=== PATIENT | female | born 1975 | race Caucasian/White ===

== ENCOUNTER 2021-11-23 17:25 | Outpatient (CLI) | payer OTHER, SELFPAY ==
[2021-11-23 21:27] LABS: Albumin* 4.6 g/dL (3.3-5.0); Chloride* 102 mmol/L (96-114); Sodium* 136 mmol/L (135-149)
[2021-11-23 21:28] LABS: Potassium* 4.4 mmol/L (3.6-5.1)
[2021-11-23 21:29] LABS: Cholesterol* 203 mg/dL (90-199)
[2021-11-23 21:30] LABS: Alkaline Phosphatase* 71 U/L (40-150); Aspartate Amino Transferase* 28 U/L (12-35); Bilirubin Direct* 0.4 mg/dL (0.0-0.5); Bilirubin Total* 0.8 mg/dL (0.1-1.5); Blood Urea Nitrogen* 15 mg/dL (5-24); Calcium* 9.6 mg/dL (8.4-10.6); Carbon Dioxide* 24 mmol/L (20-32); Creatinine* 0.8 mg/dL (0.5-1.5); Estimated Glomerular Filt Rate 90.83; Glucose* 84 mg/dL (60-115); Total Protein* 7.2 g/dL (6.0-8.3); Triglycerides* 102 mg/dL (40-149)
[2021-11-23 21:31] LABS: Alanine Aminotransferase* 37 U/L (4-35); HDL Cholesterol* 80 mg/dL (>=50); LDL Cholesterol Calculated 103 mg/dL (<100)
== END 2021-11-23 17:26 | disposition home or self-care (01) ==
PROVIDERS: PCP Emergency Medicine; Visit Provider Emergency Medicine
DX: E66.9 Obesity, unspecified (principal); R68.89 Other general symptoms and signs; L50.2 Urticaria due to cold and heat; K62.5 Hemorrhage of anus and rectum
CPT/HCPCS: 80048; 80061; 80076; 84443

== ENCOUNTER 2022-01-17 14:47 | Outpatient (CLI) | payer OTHER, SELFPAY ==
--- NOTE | 2022-01-17 15:00 | CRLHL7_ITS ---
For Patients: As a result of the Century Cures Act, medical imaging exams and procedure reports are released immediately into your electronic medical record. You may view this report before your referring provider. If you have questions, please contact your health care provider. BILATERAL SCREENING MAMMOGRAM WITH COMPUTER-AIDED DETECTION AND TOMOSYNTHESIS TECHNIQUE: CC and MLO views were obtained. These mammographic images have been obtained using full-field digital technique. These mammographic images were interpreted with the benefit of computer-aided detection. Breast Tomosynthesis was used in this interpretation. COMPARISON FILM: 06/16/20, 06/04/19, 05/18/17. FINDINGS: The breasts are heterogeneously dense, which may obscure small masses IMPRESSION: There is no radiographic evidence for malignancy. ASSESSMENT: BI-RADS Category 1: Negative RECOMMENDATION: Routine screening mammogram in 1 year. A lay language report of this examination will be provided to the patient. Jerardo Quintana M.D. Diagnostic/Musculoskeletal Radiologist [email or web address] [place]/Dictated by: Jerardo Quintana MD @ 01/18/2022 8:02:00 AM (Electronically Signed)
== END 2022-01-17 14:48 | disposition home or self-care (01) ==
LOC: MAMMO 14:48
PROVIDERS: PCP Emergency Medicine; Visit Provider Emergency Medicine
DX: Z12.31 Encounter for screening mammogram for malignant neoplasm of breast (principal); R92.2 Inconclusive mammogram
CPT/HCPCS: 77063; 77067

== ENCOUNTER 2023-02-14 16:48 | Outpatient (CLI) | payer OTHER, SELFPAY | END 2023-02-14 16:49 | disposition home or self-care (01) | LOC: NFLDREF 02-15 06:55 | PROVIDERS: PCP Emergency Medicine; Referring Provider Emergency Medicine; Visit Provider Nurse Practitioner Family | DX: N30.00 Acute cystitis without hematuria (principal); B96.20 Unspecified Escherichia coli [E. coli] as the cause of diseases classified elsewhere; R30.0 Dysuria | CPT/HCPCS: 87086; 87186 ==

== ENCOUNTER 2023-03-21 15:10 | Outpatient (CLI) | payer OTHER, SELFPAY ==
--- NOTE | 2023-03-21 15:20 | CRLHL7_ITS ---
For Patients: As a result of the Century Cures Act, medical imaging exams and procedure reports are released immediately into your electronic medical record. You may view this report before your referring provider. If you have questions, please contact your health care provider. BILATERAL SCREENING MAMMOGRAM WITH COMPUTER-AIDED DETECTION AND TOMOSYNTHESIS TECHNIQUE: CC and MLO views were obtained. These mammographic images have been obtained using full-field digital technique. These mammographic images were interpreted with the benefit of computer-aided detection. Breast Tomosynthesis was used in this interpretation. COMPARISON FILM: 01/17/22, 06/16/20, 06/04/19. FINDINGS: There are scattered areas of fibroglandular density IMPRESSION: There is no radiographic evidence for malignancy. ASSESSMENT: BI-RADS Category 1: Negative RECOMMENDATION: Routine screening mammogram in 1 year. A lay language report of this examination will be provided to the patient. Baudilio Fang M.D. Diagnostic Radiologist [email or web address] [place]/Dictated by: Baudilio Fang MD @ 03/23/2023 12:40:00 PM (Electronically Signed)
== END 2023-03-21 15:11 | disposition home or self-care (01) ==
LOC: MAMMO 15:11
PROVIDERS: PCP Emergency Medicine; Visit Provider Emergency Medicine
DX: Z12.31 Encounter for screening mammogram for malignant neoplasm of breast (principal)
CPT/HCPCS: 77063; 77067

== ENCOUNTER 2023-06-14 09:01 | Outpatient (CLI) | payer OTHER, SELFPAY | END 2023-06-14 09:02 | disposition home or self-care (01) | PROVIDERS: PCP Emergency Medicine; Visit Provider Obstetrics & Gynecology | DX: Z01.419 Encounter for gynecological examination (general) (routine) without abnormal findings (principal); Z13.6 Encounter for screening for cardiovascular disorders; Z13.1 Encounter for screening for diabetes mellitus; Z13.220 Encounter for screening for lipoid disorders | CPT/HCPCS: 80061; 82947 ==

== ENCOUNTER 2023-07-20 10:03 | Outpatient (CLI) | payer OTHER, SELFPAY | END 2023-07-20 10:04 | disposition home or self-care (01) | LOC: NFLDREF 08-04 09:37 | PROVIDERS: PCP Emergency Medicine; Referring Provider Emergency Medicine; Visit Provider Emergency Medicine | DX: Z15.89 Genetic susceptibility to other disease (principal); Z83.2 Family history of diseases of the blood and blood-forming organs and certain disorders involving the immune mechanism; Z84.81 Family history of carrier of genetic disease | CPT/HCPCS: 81240 ==

== ENCOUNTER 2023-08-18 08:05 | Outpatient (CLI) | payer OTHER, SELFPAY ==
--- NOTE | 2023-08-18 08:15 | US_ITS ---
Patient: IRIS BAUMAN Facility:?[facility] Patient ID:?[id number] Site Patient ID:?[id number]. Site :?[id number] Study:?US-Pelvis PELVIS TA & TV-08/18/2023 8:46:21 AM Ordering Physician:?LOTUS DOMINGUEZ M.D. Final Report: INDICATION: Postmenopausal bleeding. TECHNIQUE: Transabdominal and transvaginal scanning was performed. Transvaginal scanning was performed to optimally evaluate the endometrium and adnexa. Ovarian blood flow was evaluated with color-flow and pulsed Doppler. COMPARISON: Pelvic ultrasound of 07/17/2020 FINDINGS: The postmenopausal uterus is normal in size and shape. The uterus measures 8.5 x 4.5 x 5.4 cm. No myometrial mass is evident. The endometrial stripe is normal in thickness at 5 mm. The ovaries are normal in size. The right ovary measures 1.9 x 1.1 x 0.9 cm and left 2.2 x 1.4 x 1.0 cm. Ovarian blood flow is demonstrated with color-flow and pulsed Doppler. No adnexal mass is evident. No free fluid is demonstrated. IMPRESSION: Negative postmenopausal pelvic ultrasound. Dictated by Trey Birch MD @ 08/19/2023 7:13:46 AM Signed by:?Trey Birch MD @08/19/2023 7:13:46 AM (Electronic Signature)
== END 2023-08-18 08:06 | disposition home or self-care (01) ==
LOC: US 08:05
PROVIDERS: PCP Emergency Medicine; Visit Provider Obstetrics & Gynecology
DX: N95.0 Postmenopausal bleeding (principal)
CPT/HCPCS: 76830; 76856

== ENCOUNTER 2023-11-21 12:49 | Outpatient (CLI) | payer OTHER, SELFPAY | END 2023-11-21 12:50 | disposition home or self-care (01) | LOC: LKVREF 12:49 | PROVIDERS: PCP Emergency Medicine; Visit Provider Emergency Medicine | DX: R73.03 Prediabetes (principal); L70.9 Acne, unspecified | CPT/HCPCS: 80048 ==

== ENCOUNTER 2024-03-14 15:28 | Outpatient (CLI) | payer OTHER, SELFPAY | END 2024-03-14 15:29 | disposition home or self-care (01) | PROVIDERS: PCP Emergency Medicine; Visit Provider Emergency Medicine | DX: R21 Rash and other nonspecific skin eruption (principal); L20.89 Other atopic dermatitis; H01.135 Eczematous dermatitis of left lower eyelid; H01.132 Eczematous dermatitis of right lower eyelid; H01.9 Unspecified inflammation of eyelid; I73.00 Raynaud's syndrome without gangrene; L50.2 Urticaria due to cold and heat; Z63.79 Other stressful life events affecting family and household; Z23 Encounter for immunization; F41.1 Generalized anxiety disorder; R14.0 Abdominal distension (gaseous); R19.7 Diarrhea, unspecified; K59.00 Constipation, unspecified; R10.9 Unspecified abdominal pain; J34.89 Other specified disorders of nose and nasal sinuses; J39.2 Other diseases of pharynx | CPT/HCPCS: 86140; 86231; 86258; 86364 ==

== ENCOUNTER 2025-03-14 13:19 | Outpatient (CLI) | payer OTHER, SELFPAY | END 2025-03-14 13:20 | disposition home or self-care (01) | LOC: NFLDREF 03-21 02:52 | PROVIDERS: PCP Nurse Practitioner Family; Referring Provider Emergency Medicine; Visit Provider Nurse Practitioner Family | DX: R21 Rash and other nonspecific skin eruption (principal); Z13.6 Encounter for screening for cardiovascular disorders | CPT/HCPCS: 80053; 80061 ==